=== PATIENT | female | born 1970 | race Caucasian/White ===

== ENCOUNTER 2017-08-05 11:34 | Emergency (ER) | payer MEDICAID ==
[~2017-08-05] VITALS: Ht 154.9 cm; Wt 58.0 kg
[2017-08-05 11:38] VITALS: Ht 154.9 cm; Wt 58.0 kg
[2017-08-05 12:18] LABS: BASOPHIL % 0.3 % (0-2); PLATELET COUNT 178 x10^3mcL (130-400); RED CELL DISTRIBUTION WIDTH 12.9 % (11.5-14.5)
[2017-08-05 12:19] LABS: UA SPECIFIC GRAVITY >=1.030 (1.005-1.035); microscopic required? YES; urine erythrocyte TRACE (NEGATIVE)
[2017-08-05 12:40] LABS: CALCIUM 8.5 mg/dL (8.5-10.1); CARBON DIOXIDE 28.7 mmol/L (21-32); CHLORIDE SERUM 105 mmol/L (98-107); CREATININE SERUM 0.5 mg/dL (0.6-1.0); GFR1 > 60 mL/min; GLUCOSE SERUM 96 mg/dL (74-106); POTASSIUM SERUM 3.8 mmol/L (3.5-5.1); SODIUM SERUM 140 mmol/L (136-145)
[2017-08-05 12:45] LABS: ALBUMIN 3.7 g/dL (3.4-5.0); ALKALINE PHOSPHATASE 74 U/L (46-116); ALT/SGPT 25 U/L (14-59); AMYLASE 56 U/L (25-115); AST/SGOT 19 U/L (15-37); BILIRUBIN TOTAL 0.7 mg/dL (0.20-1.00); LIPASE 92 IU/L (73-393); TOTAL PROTEIN, SERUM 7.3 g/dL (6.4-8.2)
[2017-08-05 14:33] VITALS: BP 121/75
== END 2017-08-05 14:33 | disposition home or self-care (01) ==
LOC: ED 11:34
PROVIDERS: Emergency Medicine
DX: R10.32 Left lower quadrant pain (principal); I10 Essential (primary) hypertension; K76.89 Other specified diseases of liver; Z87.19 Personal history of other diseases of the digestive system; Z87.448 Personal history of other diseases of urinary system
CPT/HCPCS: 83880; J1885; J7030

== ENCOUNTER 2018-09-11 11:25 | Emergency (ER) | payer MEDICAID ==
[~2018-09-11] VITALS: Ht 152.4 cm; Wt 62.6 kg
[2018-09-11 11:52] VITALS: Ht 152.4 cm; Wt 62.6 kg
[2018-09-11 13:24] VITALS: BP 122/71
== END 2018-09-11 13:24 | disposition home or self-care (01) ==
LOC: ED 11:25
DX: H61.22 Impacted cerumen, left ear (principal); I10 Essential (primary) hypertension

== ENCOUNTER 2020-01-04 14:09 | Emergency (ER) | payer MEDICAID ==
[~2020-01-04] VITALS: Ht 162.6 cm; Wt 62.6 kg
[2020-01-04 14:15] VITALS: Ht 162.6 cm; Wt 62.6 kg
[2020-01-04 18:46] VITALS: BP 128/74
== END 2020-01-04 18:46 | disposition home or self-care (01) ==
LOC: ED 14:09
DX: R10.2 Pelvic and perineal pain (principal); I10 Essential (primary) hypertension
CPT/HCPCS: 87491; 87591